=== PATIENT | female | born 1985 | race Caucasian/White ===

== ENCOUNTER → 2017-08-02 | Outpatient (CLI) | payer OTHER ==
--- NOTE | 2017-08-02 08:54 | DIAGNOSTIC IMAGING REPORT ---
THORACIC SPINE 3 VIEWS ROUTINE CLINICAL HISTORY: Upper back pain. No recent trauma. COMPARISON STUDY: No previous studies for comparison. FINDINGS: Alignment of the thoracic spine is anatomic. Vertebral body heights are maintained. No fracture or osseous lesion is present. Disc spaces are preserved. There is minimal multilevel endplate osteophytosis. IMPRESSION: 1. No significant abnormality of the thoracic spine. No fracture. 2. Preserved disc spaces with mild multilevel endplate osteophytosis. Electronically signed by: Nehemias Diaz M.D. 08/02/2017 8:53 AM Dictated Date/Time: 08/02/2017 8:52 AM
== END | disposition home or self-care (01) ==
LOC: C.RADBC 07:59
PROVIDERS: ATTEND Nurse Practitioner Family
DX: M54.6 Pain in thoracic spine (principal)